=== PATIENT | female | born 2000 | race Two or more races ===

== ENCOUNTER 2022-01-22 15:03 | Emergency (ER) | payer OTHER ==
[~2022-01-22] VITALS: Ht 154.9 cm; Wt 45.4 kg
[2022-01-22] MEDS ORDERED: LEXAPRO20 MG (15:40)
[2022-01-22] MEDS ORDERED: PRILOSEC10 MG PO (17:14)
[2022-01-22] MEDS ORDERED: ONDANSETRON ODT4 MG PO (17:14)
== END 2022-01-22 17:39 | disposition home or self-care (01) ==
LOC: EMR PED 15:03
DX: R10.9 Unspecified abdominal pain (principal)